=== PATIENT | female | born 1990 | race Caucasian/White ===

== ENCOUNTER 2017-08-20 10:55 | Emergency (ER) | payer MEDICAID ==
[~2017-08-20] VITALS: Ht 142.2 cm; Wt 56.7 kg
[2017-08-20 11:24] VITALS: BP 117/68
--- NOTE | 2017-08-20 12:35 | NUR ---
Patient ambulated to [facility] with family to be evaluated as fast track by Dr. Bradley. RN evaluating patient.
--- NOTE | 2017-08-20 12:39 | NUR ---
Dr. Bradley evaluating patient as fast track in [facility].
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
[2017-08-20 13:27] VITALS: BP 100/62
== END 2017-08-20 13:27 | disposition home or self-care (01) ==
LOC: MED 10:55
DX: S16.1XXA Strain of muscle, fascia and tendon at neck level, initial encounter (principal); S50.811A Abrasion of right forearm, initial encounter; V89.2XXA Person injured in unspecified motor-vehicle accident, traffic, initial encounter; Y93.89 Activity, other specified; Y92.89 Other specified places as the place of occurrence of the external cause; Y99.8 Other external cause status
CPT/HCPCS: 73030; 99284